=== PATIENT | male | born 1995 | race African-American/Black ===

== ENCOUNTER 2017-04-01 18:07 | Emergency (ER) | payer OTHER ==
[~2017-04-01 18:07] MED LIST: CARBAMAZEPINE200 M6; LOXAPINE5 MG; VYVANSE30 MG
== END 2017-04-01 18:19 | disposition left against medical advice (07) ==
LOC: M.ERS 18:07
DX: Z53.21 Procedure and treatment not carried out due to patient leaving prior to being seen by health care provider (principal)